=== PATIENT | male | born 1985 | race African-American/Black ===

== ENCOUNTER 2019-08-15 02:59 | Emergency (ER) | payer OTHER ==
[~2019-08-15] VITALS: Ht 170.2 cm; Wt 54.4 kg
[2019-08-15 03:03] VITALS: Ht 170.2 cm; Wt 54.4 kg
[2019-08-15 03:58] LABS: BILIRUBIN NEGATIVE (NEGATIVE); GLUCOSE NEGATIVE (NEGATIVE); KETONE SMALL mg/dL (NEGATIVE); NITRITE NEGATIVE (NEGATIVE); UROBILINOGEN NORMAL (NORMAL)
[2019-08-15 04:03] LABS: BACTERIA FEW /hpf (NEGATIVE); EPITHELIAL CELLS 0-5 /hpf (0-5)
[2019-08-15 04:14] VITALS: BP 128/81
== END 2019-08-15 04:14 | disposition home or self-care (01) ==
LOC: D.ER 02:59
PROVIDERS: Family Medicine
DX: Z20.2 Contact with and (suspected) exposure to infections with a predominantly sexual mode of transmission (principal); R36.9 Urethral discharge, unspecified

== ENCOUNTER 2020-09-25 22:44 | Emergency (ER) | payer OTHER ==
[~2020-09-25] VITALS: Ht 170.2 cm; Wt 52.3 kg
[2020-09-25 22:44] VITALS: Ht 170.2 cm; Wt 52.3 kg
[~2020-09-25 22:44] MED LIST: HYDROCODON-ACE1 EA10 PO; NAPROSYN500 MG PO; VOLTAREN75 MG PO; ZANAFLEX4 MG PO
[2020-09-25] MEDS ORDERED: AMBIEN5 MG PO (22:55)
[2020-09-25 23:38] VITALS: BP 108/64
== END 2020-09-25 23:39 | disposition home or self-care (01) ==
LOC: D.ER 22:44
DX: R09.1 Pleurisy (principal)